=== PATIENT | female | born 2000 | race Caucasian/White ===

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

== ENCOUNTER 2019-05-23 16:17 | Emergency (ER) | payer OTHER ==
[2019-05-23 16:37] VITALS: BP 108/43; PULSE 60; TEMP 98.2; BMI 32.5
--- NOTE | 2019-05-23 17:39 | PDOC ---
History of Present Illness - General Chief Complaint: Pain, Acute Stated Complaint: ABDOMINAL PAIN Time Seen by Provider: 05/23/19 17:38 History Source: Patient Exam Limitations: No Limitations - History of Present Illness Initial Comments: 05/23/19 18:09 Ashley Givens is a 18yF with PMHx of asthma and abdominal surgery presenting with abdominal pain. Pain started 1 week ago, progressively worsening , waxes and wanes. Pain originating from epigastric and suprapubic region. This morning, pain was exacerbated while at rest. Movement worsens pain, has not tried any medication. Last period ended 10d ago. Denies fever, vomiting, urinary frequency, pyuria, hematuria, bowel changes. Not sexually active in the past 6mo, no hx of STI. Past History - Past Medical History Allergies/Adverse Reactions: Allergies Allergy/AdvReac Type Severity Reaction Status Date / Time No Known Allergies Allergy Verified 05/23/19 16:32 Home Medications: Ambulatory Orders NK [No Known Home Medication] 07/11/18 Asthma: Yes COPD: No - Immunization History Immunization Up to Date: Yes - Suicide/Smoking/Psychosocial Hx Smoking History: Never smoked Have you smoked in the past 12 months: No Number of Cigarettes Smoked Daily: 0 Hx Alcohol Use: No Drug/Substance Use Hx: No Substance Use Type: None Review of Systems - Review of Systems Able to Perform ROS?: Yes Is the patient limited Mauritanian proficient: No Constitutional: No: Chills, Fever HEENTM: No: Eye Pain, Nose Pain, Nose Congestion, Throat Pain Respiratory: No: Cough, Shortness of Breath, Wheezing Cardiac (ROS): No: Chest Pain, Edema, Palpitations, Syncope ABD/GI: No: Abdominal Distended, Constipated, Diarrhea, Nausea, Rectal Bleeding , Vomiting : No: Burning, Dysuria, Discharge, Frequency, Hematuria Musculoskeletal: No: Joint Pain, Joint Swelling, Muscle Pain, Muscle Weakness Integumentary: No: Bruising, Flushing Neurological: No: Headache, Numbness, Paresthesia, Seizure, Tingling, Tremors, Weakness Psychiatric: No: Anxiety, Depression Endocrine: No: Excessive Sweating, Flushing, Intolerance to Cold, Intolerance to Heat *Physical Exam - Vital Signs Last Vital Signs Temp Pulse Resp BP Pulse Ox 98.2 F 60 17 108/43 L 99 05/23/19 16:36 05/23/19 16:36 05/23/19 16:36 05/23/19 16:36 05/23/19 16:36 - Physical Exam General Appearance: Yes: Nourished, Appropriately Dressed, Mild Distress HEENT: positive: SENA, Normal Voice. negative: Pale Conjunctivae, Scleral Icterus (R), Scleral Icterus (L) Respiratory/Chest: positive: Lungs Clear, Normal Breath Sounds. negative: Chest Tender, Respiratory Distress, Crackles, Rales, Rhonchi, Stridor, Wheezing Cardiovascular: positive: Regular Rhythm, Regular Rate, S1, S2. negative: Edema , Murmur Gastrointestinal/Abdominal: positive: Normal Bowel Sounds, Tender (to palpation in epigastric, suprapubic regions), Flat, Soft. negative: Organomegaly, Distended, Guarding, Rebound, Hernia, Mass Integumentary: positive: Normal Color Neurologic: positive: Fully Oriented, Alert, Normal Response, Responsive. negative: Numbness, Confused, Disoriented ED Treatment Course - LABORATORY CBC & Chemistry Diagram: 05/23/19 18:40 05/23/19 18:40 Medical Decision Making - Medical Decision Making 05/23/19 18:01 cbc cmp hcg ua cx CBC normal tylenol for pain ordered CT abdomen - epigastric tenderness concern for appendicits Ashley Givens is a 18yF with PMHx of asthma and abdominal surgery presenting with abdominal pain. Concern for UTI vs , pre-appendicitis, kidney stone based on symptom presentation. Given tylenol for pain. Anticipate d /c home if pain reduced, labs and imaging normal Signed out to Dr Flo Espinal Pending labs, CT AB with contrast (put IV) *DC/Admit/Observation/Transfer Diagnosis at time of Disposition: Epigastric abdominal tenderness Qualifiers: Presence of rebound: not specified Qualified Code(s): R10.816 - Epigastric abdominal tenderness - Referrals - Patient Instructions - Post Discharge Activity
[2019-05-23] MEDS ORDERED: ACETAMINOPHEN 500 MG TABLET (FP) PO ONE (18:07)
--- NOTE | 2019-05-23 18:35 | PDOC ---
Documentation entered by Rashmi Macdonald SCRIBE, acting as scribe for Rhiannon Melendez MD. Rhiannon Melendez MD: This documentation has been prepared by the Renae charles Sammi, SCRIBE, under my direction and personally reviewed by me in its entirety. I confirm that the documentation accurately reflects all work, treatment, procedures, and medical decision making performed by me. Attending Attestation - Resident Resident Name: Juvencio العلي - ED Attending Attestation I have performed the following: I have examined & evaluated the patient, The case was reviewed & discussed with the resident, I agree w/resident's findings & plan, Exceptions are as noted - HPI HPI: 05/23/19 18:07 The patient is a 18 year old female, with no significant PMH asthma, who presents to the emergency department for evaluation of midabdominal and suprapubic pain since 05/16. The patient endorses increase in abdominal pain on exacerbation. She has not done anything for the pain as of yet. No fever, chils , diarrhea, constipation, urinary changes. - Physicial Exam PE: 05/23/19 18:29 GENERAL: The patient is in no acute distress. ENT: Ears normal, nares patent, oropharynx clear without exudates. Moist mucous membranes. NECK: Normal range of motion, supple LUNGS: Breath sounds equal, clear to auscultation bilaterally. No wheezes, and no crackles. HEART:Regular rate and rhythm, normal S1 and S2 without murmur, rub or gallop. ABDOMEN: (+)significant periumbilical tenderness to mild palpation. Otherwise, abd is soft, No involuntary guarding, no rebound. No masses palpable. No hernia's palpable NEUROLOGICAL: Cranial nerves II through XII grossly intact. Normal speech. No focal neurological deficits. 05/23/19 18:32 - Medical Decision Making 05/23/19 18:33 18 yo F presenting with periumbilical pain/tenderness x 1 week ago No heavy lifting (? secondary to lifting luggage) Nausea no vomiting No fevers or chills 05/23/19 18:34 DD: musculoskeletal pain, umbilical hernia, doubt early appendicitis (given chronicity of symptoms) Will do: Labs UA consider CT 05/23/19 18:47 Signed out pending Labs and CT
[2019-05-23 19:10] LABS: BASO % 0.9 % (0-2.0); EOS % 1.1 % (0-4.5); HEMATOCRIT 38.5 % (32.4-45.2); HEMOGLOBIN 12.9 GM/dL (10.7-15.3); MCH 26.6 pg (25.7-33.7); MCHC 33.7 g/dl (32.0-36.0); MEAN PLT VOLUME 7.7 fl (7.5-11.1); MONO % 6.9 % (3.8-10.2); NEUT % 64.1 % (42.8-82.8); PLATELET COUNT 277 K/MM3 (134-434); RBC 4.87 M/mm3 (3.60-5.2); RDW 13.4 % (11.6-15.6); WHITE BLOOD COUNT 8.9 K/mm3 (4.0-10.0)
[2019-05-23] MEDS ORDERED: ACETAMINOPHEN 1000 MG/100 ML VIAL (NON FORMULARY) IVPB ONE (19:55)
[2019-05-23] MEDS ORDERED: ACETAMINOPHEN INJECTION 100 ML IVPB ONE (20:05)
[2019-05-23 20:13] LABS: EPI CELLS 5.1 /HPF (0-5/HPF); HYALINE CASTS 6 /lpf (0-8); PH,URINE 7.5 (5.0-8.0); URINE APPEARANCE CLEAR; URINE BACTERIA 228.1 /hpf (NEGATIVE); URINE BILIRUBIN NEGATIVE (NEGATIVE); URINE COLOR YELLOW; URINE GLUCOSE (UA) NEGATIVE (NEGATIVE); URINE KETONE NEGATIVE (NEGATIVE); URINE LEUK ESTERASE 1+ (NEGATIVE); URINE NITRITE NEGATIVE (NEGATIVE); URINE PROTEIN NEGATIVE (NEGATIVE); URINE RBC 1 /hpf (0-4); URINE UROBILINOGEN 0.2 mg/dL (0.2-1.0); URINE WBC 10 /hpf (0-5)
[2019-05-23 20:19] LABS: ALBUMIN 3.7 g/dl (3.4-5.0); BILIRUBIN,TOTAL 0.2 mg/dL (0.2-1); BLOOD UREA NITROGEN 7.6 mg/dL (7-18); CALCIUM 9.1 mg/dL (8.5-10.1); CREATININE 0.6 mg/dL (0.55-1.3); TOT PROT 7.7 g/dl (6.4-8.2)
[2019-05-23] MEDS ORDERED: CEFTRIAXONE 1 GM/50 ML BAG ONE (20:36)
[2019-05-23] MEDS: CEFTRIAXONE 1,000 MG in DEXTROSE 5%-WATER - 50 ML IVPB ONE ×2 (20:37→22:51)
--- NOTE | 2019-05-23 21:02 | PDOC ---
*Physical Exam - Vital Signs Last Vital Signs Temp Pulse Resp BP Pulse Ox 98.2 F 60 17 108/43 L 99 05/23/19 16:36 05/23/19 16:36 05/23/19 16:36 05/23/19 16:36 05/23/19 16:36 ED Treatment Course - LABORATORY CBC & Chemistry Diagram: 05/23/19 18:40 05/23/19 18:40 - ADDITIONAL ORDERS Additional order review: Laboratory Results 05/23/19 05/23/19 05/23/19 18:40 18:40 18:40 Sodium 140 Potassium 4.0 Chloride 106 Carbon Dioxide 29 Anion Gap 6 L BUN 7.6 Creatinine 0.6 Est GFR (CKD-EPI)AfAm 152.08 Est GFR (CKD-EPI)NonAf 131.21 Random Glucose 80 Calcium 9.1 Total Bilirubin 0.2 AST 14 L ALT 26 Alkaline Phosphatase 129 H Total Protein 7.7 Albumin 3.7 Urine Color Yellow Urine Appearance Clear Urine pH 7.5 D Ur Specific Martha 1.019 Urine Protein Negative Urine Glucose (UA) Negative Urine Ketones Negative Urine Blood Negative Urine Nitrite Negative Urine Bilirubin Negative Urine Urobilinogen 0.2 Ur Leukocyte Esterase 1+ H Urine WBC (Auto) 10 Urine RBC (Auto) 1 Urine Casts (Auto) 6 U Epithel Cells (Auto) 5.1 Urine Bacteria (Auto) 228.1 Urine HCG, Qual Negative 05/23/19 18:40 RBC 4.87 MCV 79.0 L MCHC 33.7 RDW 13.4 MPV 7.7 Neutrophils % 64.1 Lymphocytes % 27.0 D Monocytes % 6.9 Eosinophils % 1.1 Basophils % 0.9 - Medications Given in the ED: ED Medications Discontinued Medications Generic Name Dose Route Start Last Admin Trade Name Freq PRN Reason Stop Dose Admin Acetaminophen 1,000 mg 05/23/19 19:55 05/23/19 20:22 Ofirmev Injection - IVPB 05/23/19 19:56 1,000 mg ONCE ONE Administration Medical Decision Making - Medical Decision Making 05/23/19 1900 Sign out taken from Dr. العلي. Concern for UTI vs vs pre- appendicitis. We will obtain labs and CT abdomen pelvis w/ contrast. 05/23/[address] of the abdomen/pelvis shows no free intra-abdominal gas. Appendix appears normal. No hydronephrosis or renal calculi seen. *DC/Admit/Observation/Transfer Diagnosis at time of Disposition: UTI (urinary tract infection) Qualifiers: Urinary tract infection type: site unspecified Hematuria presence: without hematuria Qualified Code(s): N39.0 - Urinary tract infection, site not specified - Discharge Dispostion Disposition: HOME - Prescriptions Prescriptions: Nitrofurantoin Monohyd/M-Cryst [Macrobid -] 100 mg PO BID #14 capsule - Referrals - Patient Instructions Printed Discharge Instructions: DI for Urinary Tract Infection (UTI) Additional Instructions: You were evaluated today in the ER for your symptoms. We performed laboratory evaluation as well as CT and found you to have a UTI. We started you on antibiotics and sent a prescription to your pharmacy. Take all medications as proscribed. Follow-up with primary care provider early next week for further evaluation. Return to ER if any fever, chills, pain, or other concerning symptoms. - Post Discharge Activity
[2019-05-23] MEDS ORDERED: NITROFURANTOIN MACROCRYSTAL 50 MG CAPSULE (FP) PO SCH (21:15)
[2019-05-23] MEDS ORDERED: ACETAMINOPHEN 325 MG TABLET (FP) ONE (22:01)
--- NOTE | 2019-05-24 00:07 | PDOC ---
*Physical Exam - Vital Signs Last Vital Signs Temp Pulse Resp BP Pulse Ox 98.2 F 60 17 108/43 L 99 05/23/19 16:36 05/23/19 16:36 05/23/19 16:36 05/23/19 16:36 05/23/19 16:36 ED Treatment Course - LABORATORY CBC & Chemistry Diagram: 05/23/19 18:40 05/23/19 18:40 - ADDITIONAL ORDERS Additional order review: Laboratory Results 05/23/19 05/23/19 05/23/19 18:40 18:40 18:40 Sodium 140 Potassium 4.0 Chloride 106 Carbon Dioxide 29 Anion Gap 6 L BUN 7.6 Creatinine 0.6 Est GFR (CKD-EPI)AfAm 152.08 Est GFR (CKD-EPI)NonAf 131.21 Random Glucose 80 Calcium 9.1 Total Bilirubin 0.2 AST 14 L ALT 26 Alkaline Phosphatase 129 H Total Protein 7.7 Albumin 3.7 Urine Color Yellow Urine Appearance Clear Urine pH 7.5 D Ur Specific Dresher 1.019 Urine Protein Negative Urine Glucose (UA) Negative Urine Ketones Negative Urine Blood Negative Urine Nitrite Negative Urine Bilirubin Negative Urine Urobilinogen 0.2 Ur Leukocyte Esterase 1+ H Urine WBC (Auto) 10 Urine RBC (Auto) 1 Urine Casts (Auto) 6 U Epithel Cells (Auto) 5.1 Urine Bacteria (Auto) 228.1 Urine HCG, Qual Negative 05/23/19 18:40 RBC 4.87 MCV 79.0 L MCHC 33.7 RDW 13.4 MPV 7.7 Neutrophils % 64.1 Lymphocytes % 27.0 D Monocytes % 6.9 Eosinophils % 1.1 Basophils % 0.9 - Medications Given in the ED: ED Medications Discontinued Medications Generic Name Dose Route Start Last Admin Trade Name Tiq PRN Reason Stop Dose Admin Acetaminophen 1,000 mg 05/23/19 18:07 05/23/19 22:51 Tylenol - PO 05/23/19 18:08 Not Given ONCE ONE Acetaminophen 1,000 mg 05/23/19 19:55 05/23/19 20:22 Ofirmev Injection - IVPB 05/23/19 19:56 1,000 mg ONCE ONE Administration Ceftriaxone Sodium 1,000 mg/ 50 mls @ 100 mls/hr 05/23/19 20:20 05/23/19 22: 51 Dextrose IVPB 05/23/19 20:49 Not Given ONCE ONE Nitrofurantoin Macrocrystals 100 mg 05/23/19 21:15 05/23/19 22:51 Macrodantin - PO Not Given ONCE [facility] Medical Decision Making - Medical Decision Making 05/24/19 00:[address] Espinal. Patient noted to have negative CT Abd/Pelvis. Workup significant for cystitis only. Discharging to home for further outpatient follow-up. *DC/Admit/Observation/Transfer Diagnosis at time of Disposition: UTI (urinary tract infection) Qualifiers: Urinary tract infection type: site unspecified Hematuria presence: without hematuria Qualified Code(s): N39.0 - Urinary tract infection, site not specified - Discharge Dispostion Disposition: HOME - Prescriptions Prescriptions: Nitrofurantoin Monohyd/M-Cryst [Macrobid -] 100 mg PO BID #14 capsule - Referrals - Patient Instructions Printed Discharge Instructions: DI for Urinary Tract Infection (UTI) Additional Instructions: You were evaluated today in the ER for your symptoms. We performed laboratory evaluation as well as CT and found you to have a UTI. We started you on antibiotics and sent a prescription to your pharmacy. Take all medications as proscribed. Follow-up with primary care provider early next week for further evaluation. Return to ER if any fever, chills, pain, or other concerning symptoms. - Post Discharge Activity
[2019-05-24] MEDS ORDERED: NITROFURANTOIN MACROCRYSTAL 50 MG CAPSULE (FP) PO SCH (00:15)
== END 2019-05-24 00:14 | disposition home or self-care (01) ==
LOC: JER 16:17
PROC: 3E033NZ Introduction of Analgesics, Hypnotics, Sedatives into Peripheral Vein, Percutaneous Approach (ICD-10-PCS; principal; 2019-05-23)
DX: N39.0 Urinary tract infection, site not specified (principal)
CPT/HCPCS: 36415; 74176-TC; 80053; 81003; 84703; 85025; 87086; 87186; 96374; 99282-25; J0131

== ENCOUNTER 2019-11-05 10:07 | Emergency (ER) | payer OTHER ==
[2019-11-05 10:19] VITALS: BP 115/50; PULSE 73; TEMP 97.9; BMI 34.3
[2019-11-05] MEDS ORDERED: KETOROLAC TROMETHAMINE 60 MG/2 ML VIAL IM ONE (11:46)
[2019-11-05] MEDS ORDERED: KETOROLAC TROMETHAMINE 60 MG/2 ML VIAL ONE (11:48)
--- NOTE | 2019-11-05 11:51 | PDOC ---
History of Present Illness - General Chief Complaint: Injury Stated Complaint: FALL/RT KNEE PAIN Time Seen by Provider: 11/05/19 11:38 History Source: Patient - History of Present Illness Pain Location: reports: lower extremity Method of Injury: Yes: fall Past History - Past Medical History Allergies/Adverse Reactions: Allergies Allergy/AdvReac Type Severity Reaction Status Date / Time amoxicillin [From Augmentin] Allergy Verified 11/05/19 10:17 clavulanic acid Allergy Verified 11/05/19 10:17 [From Augmentin] Home Medications: Ambulatory Orders Nitrofurantoin Monohyd/M-Cryst [Macrobid -] 100 mg PO BID #14 capsule 05/24/19 Asthma: Yes COPD: No - Immunization History Immunization Up to Date: Yes - Psycho Social/Smoking Cessation Hx Smoking History: Never smoked Have you smoked in the past 12 months: No Number of Cigarettes Smoked Daily: 0 Information on smoking cessation initiated: No Hx Alcohol Use: No Drug/Substance Use Hx: No Substance Use Type: None Review of Systems - Review of Systems Musculoskeletal: Yes: Joint Pain. No: Back Pain, Joint Swelling, Neck Pain Neurological: No: Headache, Dizziness *Physical Exam - Vital Signs Last Vital Signs Temp Pulse Resp BP Pulse Ox 97.9 F 73 18 115/50 L 98 11/05/19 10:17 11/05/19 10:17 11/05/19 10:17 11/05/19 10:17 11/05/19 10:17 - Physical Exam General Appearance: Yes: Appropriately Dressed, Mild Distress HEENT: positive: Normal Voice Neck: positive: Supple Respiratory/Chest: negative: Respiratory Distress Extremity: positive: Tender (w/ abrasion to anterior R knee, no sig swelling, LROM 2/2 pain, limping in ED) Integumentary: positive: Dry, Warm Neurologic: positive: Fully Oriented, Alert, Normal Mood/Affect ED Treatment Course - RADIOLOGY Radiology Studies Ordered: Category Date Time Status KNEE 3 POS-RIGHT [RAD] Stat Radiology 11/05/19 11:46 Ordered Medical Decision Making - Medical Decision Making 11/05/19 11:47 19 yo F, p/w severe R knee pain and inability to bear weight s/p fall onto R knee this am. Denies any other injuries See exam Knee contusion s/p fall this am R/o fx -pain control in ED 11/05/19 12:46 XR neg for fx. Dc w/ OTC pain meds prn. Discharge - Discharge Information Problems reviewed: Yes Clinical Impression/Diagnosis: Knee abrasion Qualifiers: Encounter type: initial encounter Laterality: right Qualified Code(s): S80.211A - Abrasion, right knee, initial encounter Condition: Good Disposition: HOME - Follow up/Referral - Patient Discharge Instructions Patient Printed Discharge Instructions: DI for Abrasion - Post Discharge Activity Work/Back to School Note: Back to Work
== END 2019-11-05 12:46 | disposition home or self-care (01) ==
LOC: JERFT 10:07
PROC: 3E0233Z Introduction of Anti-inflammatory into Muscle, Percutaneous Approach (ICD-10-PCS; principal; 2019-11-05)
DX: S80.211A Abrasion, right knee, initial encounter (principal); S80.01XA Contusion of right knee, initial encounter; W20.8XXA Other cause of strike by thrown, projected or falling object, initial encounter; Y93.89 Activity, other specified; Y92.038 Other place in apartment as the place of occurrence of the external cause; Y99.8 Other external cause status; Z88.0 Allergy status to penicillin; Z88.8 Allergy status to other drugs, medicaments and biological substances
CPT/HCPCS: 73562-TC-RT-FY; 99281-25

== ENCOUNTER 2021-08-17 15:49 | Emergency (ER) | payer OTHER ==
[2021-08-17 16:01] VITALS: BP 108/72; PULSE 83; TEMP 98.6; BMI 41.6
[2021-08-17] MEDS ORDERED: ONDANSETRON 4 MG/2 ML VIAL IVPUSH ONE (16:20)
[2021-08-17] MEDS ORDERED: FAMOTIDINE 20 MG/50 ML IVPB 20 MG/50 ML MG IVPB ONE ×2 (16:20→16:51)
[2021-08-17] MEDS ORDERED: ACETAMINOPHEN 1000 MG/100 ML VIAL (NON FORMULARY) IVPB ONE (16:20)
[2021-08-17] MEDS ORDERED: SODIUM CHLORIDE 1,000 ML IV STA ×2 (16:20→18:52)
[2021-08-17] MEDS ORDERED: ACETAMINOPHEN INJECTION 100 ML IVPB ONE (16:50)
[2021-08-17] MEDS ORDERED: ONDANSETRON 4 MG/2 ML VIAL ONE (16:51)
[2021-08-17 17:58] LABS: BASO % 0.4 % (0-2.0); EOS % 0.1 % (0-4.5); HEMATOCRIT 38.4 % (32.4-45.2); HEMOGLOBIN 13.1 GM/dL (10.7-15.3); LYMPH % 13.1 % (8-40); MCH 26.2 pg (25.7-33.7); MEAN PLT VOLUME 7.8 fl (7.5-11.1); MONO % 5.7 % (3.8-10.2); NEUT % 80.7 % (42.8-82.8); PLATELET COUNT 302 10^3/uL (134-434); RBC 4.99 M/mm3 (3.60-5.2); WHITE BLOOD COUNT 10.7 K/mm3 (4.0-10.0)
[2021-08-17 18:04] LABS: INR 1.07 (0.83-1.09); PROTHROMBIN TIME (PATIENT) 13.2 SEC (9.7-13.0)
[2021-08-17 18:14] LABS: CALCIUM 8.9 mg/dL (8.5-10.1)
[2021-08-17 18:15] LABS: ALBUMIN 3.4 g/dl (3.4-5.0)
[2021-08-17 18:18] LABS: CREATININE 0.6 mg/dL (0.55-1.3)
[2021-08-17 18:20] LABS: BILIRUBIN,TOTAL 0.3 mg/dL (0.2-1); TOT PROT 7.5 g/dl (6.4-8.2)
[2021-08-17] MEDS ORDERED: METOCLOPRAMIDE HCL INJECTION 10 MG/2 ML VIAL IVPB ONE (18:51)
[2021-08-17] MEDS ORDERED: METOCLOPRAMIDE HCL INJECTION 10 MG/2 ML VIAL ONE (19:30)
[2021-08-17 19:41] LABS: PH,URINE 7.5 (5.0-8.0); URINE APPEARANCE CLEAR; URINE BILIRUBIN NEGATIVE (NEGATIVE); URINE COLOR YELLOW; URINE GLUCOSE (UA) NEGATIVE (NEGATIVE); URINE KETONE NEGATIVE (NEGATIVE); URINE LEUK ESTERASE NEGATIVE (NEGATIVE); URINE NITRITE NEGATIVE (NEGATIVE); URINE PROTEIN NEGATIVE (NEGATIVE)
[2021-08-17 19:43] LABS: HCG,QUALITATIVE URINE Negative
[2021-08-17] MEDS ORDERED: KETOROLAC TROMETHAMINE 15 MG/ML VIAL IVPUSH ONE (21:03)
[2021-08-17] MEDS ORDERED: KETOROLAC TROMETHAMINE 15 MG/ML VIAL ONE (21:19)
== END 2021-08-17 23:16 | disposition home or self-care (01) ==
LOC: JER 15:49
PROC: 3E0333Z Introduction of Anti-inflammatory into Peripheral Vein, Percutaneous Approach (ICD-10-PCS; principal; 2021-08-17)
PROC: 3E033GC Introduction of Other Therapeutic Substance into Peripheral Vein, Percutaneous Approach (ICD-10-PCS; 2021-08-17)
PROC: 3E033GC Introduction of Other Therapeutic Substance into Peripheral Vein, Percutaneous Approach (ICD-10-PCS; 2021-08-17)
PROC: 3E0333Z Introduction of Anti-inflammatory into Peripheral Vein, Percutaneous Approach (ICD-10-PCS; 2021-08-17)
PROC: 3E033GC Introduction of Other Therapeutic Substance into Peripheral Vein, Percutaneous Approach (ICD-10-PCS; 2021-08-17)
PROC: 3E033GC Introduction of Other Therapeutic Substance into Peripheral Vein, Percutaneous Approach (ICD-10-PCS; 2021-08-17)
PROC: 3E0337Z Introduction of Electrolytic and Water Balance Substance into Peripheral Vein, Percutaneous Approach (ICD-10-PCS; 2021-08-17)
PROC: 3E0337Z Introduction of Electrolytic and Water Balance Substance into Peripheral Vein, Percutaneous Approach (ICD-10-PCS; 2021-08-17)
DX: K52.9 Noninfective gastroenteritis and colitis, unspecified (principal)
CPT/HCPCS: 36415; 74177-TC; 80053; 81003; 84703; 85025; 85610; 87086; 96361; 96374; 96375; 99285-25; J0131; Q9967

== ENCOUNTER 2021-09-04 21:04 | Emergency (ER) | payer OTHER ==
[2021-09-04 21:09] VITALS: TEMP 97.9; BMI 40.7
[2021-09-04 22:48] LABS: EPI CELLS 33 /uL (0-25.1); HYALINE CASTS 1 /uL (0-3.1); URINE APPEARANCE CLEAR; URINE BILIRUBIN NEGATIVE (NEGATIVE); URINE COLOR YELLOW; URINE GLUCOSE (UA) NEGATIVE (NEGATIVE); URINE KETONE NEGATIVE (NEGATIVE); URINE LEUK ESTERASE 1+ (NEGATIVE); URINE NITRITE NEGATIVE (NEGATIVE); URINE PROTEIN NEGATIVE (NEGATIVE); URINE RBC 5 /uL (0-23.9); URINE UROBILINOGEN 0.2 mg/dL (0.2-1.0); URINE WBC 75 /uL (0-25.8)
[2021-09-04 22:54] LABS: URINE BACTERIA NEGATIVE /hpf (NEGATIVE)
[2021-09-05 03:19] VITALS: BP 116/72; PULSE 98
== END 2021-09-05 02:40 | disposition home or self-care (01) ==
LOC: JER 21:04
DX: O26.891 Other specified pregnancy related conditions, first trimester (principal); R10.9 Unspecified abdominal pain
CPT/HCPCS: 36415; 76817-TC; 81003; 84702; 84703; 99284-25